=== PATIENT | male | born 1965 | race Caucasian/White ===

== ENCOUNTER 2019-09-09 12:08 | Emergency (ER) | payer OTHER ==
--- NOTE | 2019-09-09 12:26 | ER Document Report ---
ED Medical Screen (RME) - General Chief Complaint: Abdominal Pain Stated Complaint: ABDOMINAL PAIN Time Seen by Provider: 09/09/19 12:21 Notes: HPI: 54-year-old male with 6 weeks of intermittent right upper quadrant pain after eating and drinking. Reports of nausea no vomiting. No fever. Pain worse today but still intermittent in nature he is concerned about it being his gallbladder no history of abdominal surgeries I have greeted and performed a rapid initial assessment of this patient. A comprehensive ED assessment and evaluation of the patient, analysis of test results and completion of the medical decision making process will be conducted by additional ED providers PHYSICAL EXAMINATION: Mildly uncomfortable. Mild tenderness in the right upper quadrant on palpation - Related Data Allergies/Adverse Reactions: amoxicillin Allergy (Verified 09/09/19 12:13) clindamycin Allergy (Verified 09/09/19 12:13) enoxaparin [From Lovenox] Allergy (Verified 09/09/19 12:13) warfarin [From Coumadin] Allergy (Verified 09/09/19 12:13) Past Medical History - Social History Chew tobacco use (# tins/day): No Frequency of alcohol use: None Drug Abuse: None Physical Exam - Vital signs Vitals: Temp Pulse Resp BP Pulse Ox 97.8 F 76 18 148/83 H 97 09/09/19 12:12 09/09/19 12:12 09/09/19 12:12 09/09/19 12:12 09/09/19 12:12 Course - Vital Signs Vital signs: Temp Pulse Resp BP Pulse Ox 97.8 F 76 18 148/83 H 97 09/09/19 12:12 09/09/19 12:12 09/09/19 12:12 09/09/19 12:12 09/09/19 12:12
[2019-09-09 12:42] LABS: ABSOLUTE EOSINOPHILS # (AUTO) 0.1 10^3/uL (0.0-0.6); ABSOLUTE LYMPHOCYTES (AUTO) 1.7 10^3/uL (0.5-4.7); ABSOLUTE MONOCYTES (AUTO) 0.9 10^3/uL (0.1-1.4); ABSOLUTE NEUT (AUTO) 4.9 10^3/uL (1.7-8.2); BASOPHILS % (AUTO) 0.7 % (0-2); EOSINOPHILS % (AUTO) 1.6 % (0-6); HEMATOCRIT 47.6 % (37.9-51.0); HEMOGLOBIN 17.4 g/dL (13.5-17.0); LYMPHOCYTES % (AUTO) 22.5 % (13-45); MEAN CORPUSCULAR HEMOGLOBIN 32.8 pg (27.0-33.4); MEAN CORPUSCULAR HGB CONC 36.5 g/dL (32.0-36.0); MEAN CORPUSCULAR VOLUME 90 fl (80-97); MONOCYTES % (AUTO) 11.3 % (3-13); PLATELET COUNT 318 10^3/uL (150-450); RED CELL DISTRIBUTION WIDTH 13.5 % (11.5-14.0); SEGMENTED NEUTROPHILS % (AUTO) 63.9 % (42-78); TOTAL CELLS COUNTED % (AUTO) 100 %; WHITE BLOOD COUNT 7.6 10^3/uL (4.0-10.5)
[2019-09-09 13:05] LABS: ALBUMIN 4.9 g/dL (3.5-5.0); ALKALINE PHOSPHATASE 81 U/L (38-126); ANION GAP 9 (5-19); ASPARTATE AMINO TRANSFERASE 29 U/L (17-59); BILIRUBIN,DIRECT 0.1 mg/dL (0.0-0.4); BILIRUBIN,TOTAL 0.9 mg/dL (0.2-1.3); BLOOD UREA NITROGEN 16 mg/dL (7-20); CALCIUM 9.8 mg/dL (8.4-10.2); CARBON DIOXIDE 28 mmol/L (22-30); CHLORIDE 103 mmol/L (98-107); GLUCOSE 85 mg/dL (75-110); POTASSIUM 4.2 mmol/L (3.6-5.0); TOTAL PROTEIN 8.1 g/dL (6.3-8.2)
--- NOTE | 2019-09-09 13:21 | RADIOLOGY REPORT (SQ) ---
EXAM DESCRIPTION: U/S ABDOMEN LTD W/DOPPLER IMAGES COMPLETED DATE/TIME: 09/09/2019 12:59 pm REASON FOR STUDY: eval gallbladder COMPARISON: None. TECHNIQUE: Dynamic and static grayscale images acquired of the abdomen and recorded on PACS. Additio nal selected color Doppler and spectral images recorded. LIMITATIONS: None. FINDINGS: PANCREAS: Visualized portion of the pancreas are normal in appearance. LIVER: No masses. Echotexture normal. LIVER VASCULATURE: Normal directional flow of the main portal vein and hepatic veins. GALLBLADDER: No stones. Normal wall thickness. No pericholecystic fluid. ULTRASOUND-DETECTED CRUZ'S SIGN: Negative. INTRAHEPATIC DUCTS AND COMMON DUCT: CBD and intrahepatic ducts normal caliber. No filling defects. AORTA: No aneurysm. RIGHT KIDNEY: Normal size. Normal echogenicity. No solid or suspicious masses. No hydronephrosis. No calcifications. PERITONEAL AND RIGHT PLEURAL SPACE: No ascites or effusions. OTHER: No other significant findings. IMPRESSION: NORMAL RIGHT UPPER QUADRANT ULTRASOUND. TECHNICAL DOCUMENTATION: JOB ID: [id number] 2010 [employer]- All Rights Reserved Reading location - IP/workstation name: [email or web address]
--- NOTE | 2019-09-09 14:01 | ER Document Report ---
ED General - General Chief Complaint: Abdominal Pain Stated Complaint: ABDOMINAL PAIN Time Seen by Provider: 09/09/19 12:21 Primary Care Provider: SANTOS,PATY [Primary Care Provider] - Follow up as needed Mode of Arrival: Ambulatory Notes: HPI: 54-year-old male with 6 weeks of intermittent right upper quadrant pain after eating and drinking. Reports of nausea no vomiting. No fever. Pain w orse today but still intermittent in nature he is concerned about it being his gallbladder no history of abdominal surgeries 54-year-old male arrives with chief complaint of 1 to 3-month history of right upper quadrant pain which is painful on lifting moving and palpation of the area. 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 He also worked in the [employer] but had to retire because of his right hip problem. He has been doing a lot of yard work lately and he has a cornejo skin because of this. Patient denies any history of kidney disease or liver disease or gallbladder disease. His labs and ultrasound were normal today. TRAVEL OUTSIDE OF THE [place] IN LAST 30 DAYS: No - Related Data Allergies/Adverse Reactions: amoxicillin Allergy (Verified 09/09/19 12:13) clindamycin Allergy (Verified 09/09/19 12:13) enoxaparin [From Lovenox] Allergy (Verified 09/09/19 12:13) warfarin [From Coumadin] Allergy (Verified 09/09/19 12:13) Past Medical History - Social History Smoking Status: Former Smoker Chew tobacco use (# tins/day): No Frequency of alcohol use: None Drug Abuse: None Lives with: Family Family History: Reviewed & Not Pertinent Patient has suicidal ideation: No Patient has homicidal ideation: No Past Surgical History: Reports: Hx Orthopedic Surgery - spine sx, right hip replacement x2 Physical Exam - Vital signs Vitals: Temp Pulse Resp BP Pulse Ox 97.8 F 76 18 148/83 H 97 09/09/19 12:12 09/09/19 12:12 09/09/19 12:12 09/09/19 12:12 09/09/19 12:12 Interpretation: Normal - General General appearance: Alert, Anxious - HEENT Head: Normocephalic Eyes: Normal Conjunctiva: Normal Cornea: Normal Extraocular movements intact: Yes Eyelashes: Normal Pupils: PERRL Sinus: Normal Nasal: Normal Pharynx: Normal Neck: Normal - Respiratory Respiratory status: No respiratory distress Chest status: Nontender Breath sounds: Normal Chest palpation: Normal - Cardiovascular Rhythm: Regular Heart sounds: Normal auscultation Murmur: No Friction rub: No Ximena's crunch: No - Abdominal Inspection: Normal Distension: No distension Bowel sounds: Normal Tenderness: Nontender Organomegaly: No organomegaly - Back Back: Normal - Extremities General upper extremity: Normal inspection General lower extremity: Normal inspection - Neurological Neuro grossly intact: Yes Cognition: Normal Orientation: AAOx4 Rachele Coma Scale Eye Opening: Spontaneous Rachele Coma Scale Verbal: Oriented Speech: Normal Cranial nerves: Normal Cerebellar coordination: Normal Motor strength normal: LUE, RUE, LLE, RLE - Psychological Associated symptoms: Anxious - Skin Skin Temperature: Warm Skin Moisture: Dry Course - Vital Signs Vital signs: Temp Pulse Resp BP Pulse Ox 97.8 F 76 18 148/83 H 97 09/09/19 12:12 09/09/19 12:12 09/09/19 12:12 09/09/19 12:12 09/09/19 12:12 - Laboratory Result Diagrams: 09/09/19 12:30 09/09/19 12:30 Laboratory results interpreted by me: 09/09/19 12:30 Hgb 17.4 H MCHC 36.5 H - Diagnostic Test Radiology reviewed: Reports reviewed Radiology results interpreted by me: 09/09/19 16:46 As per radiology patient has no CT scan or ultrasound findings that explain the patient's right upper quadrant pain but also has 2.5 cm left lower quadrant possible diverticulitis. Critical Care Note - Critical Care Note Total time excluding time spent on procedures (mins): 90 Comments: I advised patient to follow-up with personal doctor and with surgeon of choice Discharge - Discharge Clinical Impression: Muscular abdominal pain in right upper quadrant, Diverticulitis Abdominal pain Qualifiers: Abdominal location: right upper quadrant Qualified Code(s): R10.11 - Right upper quadrant pain Condition: Good Disposition: HOME, SELF-CARE Additional Instructions: Follow-up with personal doctor and with surgeon of choice return to ER as needed take medicines as directed; avoid lifting bending or twisting until seen by PMD Prescriptions: Diclofenac Sodium 100 gm TP BID PRN #100 gel..gram. PRN Reason: Levofloxacin [Levaquin 500 mg Tablet] 500 mg PO DAILY #10 tablet [facility]errals: [facility] [Primary Care Provider] - Follow up as needed
--- NOTE | 2019-09-09 16:36 | RADIOLOGY REPORT (SQ) ---
EXAM DESCRIPTION: CT ABD/PELVIS WITH IV ONLY IMAGES COMPLETED DATE/TIME: 09/09/2019 4:22 pm REASON FOR STUDY: pain ruq COMPARISON: Right upper quadrant ultrasound 09/09/2019 TECHNIQUE: CT scan of the abdomen and pelvis performed using helical scanning technique with dynamic intravenous contrast injection. No oral contrast. Images reviewed with lung, soft tissue, and bone windows. Reconstructed coronal and sagittal MPR images reviewed. Delayed images for evaluation of the urinary system also acquired. All images stored on PACS. All CT scanners at this facility use dose modulation, iterative reconstruction, and/or weight based d osing when appropriate to reduce radiation dose to as low as reasonably achievable (ALARA). [facility]: Dose Right [facility]: CareDose [facility]: Dose Right [facility]: Teradose 4D [facility]: AgreeYa [employer] - Onvelop CONTRAST TYPE AND DOSE: contrast/concentration: Isovue 350.00 mg/ml; Total Contrast Delivered: 100.0 ml; Total Saline Delivered: 50.0 ml RENAL FUNCTION: Creatinine 1.0 RADIATION DOSE: CT Rad equipment meets quality standard of care and radiation dose reduction techniq ues were employed. CTDIvol: NaN - NaN mGy. DLP: 0 mGy-cm.. LIMITATIONS: None. FINDINGS: LOWER CHEST: No significant findings. No nodules or infiltrates. LIVER: Normal size. No masses. No dilated ducts. SPLEEN: Normal size. No focal lesions. PANCREAS: No masses. No significant calcifications. No adjacent inflammation or peripancreatic fluid collections. Pancreatic duct not dilated. GALLBLADDER: No identified stones by CT criteria. No inflammatory changes to suggest cholecystitis. ADRENAL GLANDS: No significant masses or asymmetry. RIGHT KIDNEY AND URETER: No solid masses. No significant calcifications. No hydronephrosis or hyd roureter. LEFT KIDNEY AND URETER: No solid masses. No significant calcifications. No hydronephrosis or hydr oureter. AORTA AND VESSELS: No aneurysm. No dissection. Renal arteries, SMA, celiac without stenosis. RETROPERITONEUM: No retroperitoneal adenopathy, hemorrhage or masses. BOWEL AND PERITONEAL CAVITY: No CT evidence of bowel obstruction or free intraperitoneal air or fluid . There are scattered colonic diverticuli present in the left lower quadrant pericolic fat adjacent to the distal descending colon, an ill-defined 2.5 x 2.5 cm area of increased attenuation in the fat is present adjacent to a colonic diverticulum. There is no bowel wall thickening. This could represent acute diverticulitis or residua of old prior diverticulitis, finding is best shown on coronal image 33 and axial images 74-77. APPENDIX: Normal. PELVIS: No mass. No free fluid. Normal bladder. ABDOMINAL WALL: No masses. No hernias. BONES: No significant or acute findings. OTHER: No other significant finding. IMPRESSION: No CT findings to explain history of right upper quadrant pain 2.5 cm area of increased density in the pericolic fat left lower quadrant. This could represent acut e or chronic change from diverticulitis TECHNICAL DOCUMENTATION: JOB ID: [id number] Quality ID # [id number]: Final reports with documentation of one or more dose reduction techniques (e.g., Au tomated exposure control, adjustment of the mA and/or kV according to patient size, use of iterative reconstruction technique) 2010 [email or web address]- All Rights Reserved Reading location - IP/workstation name: [email or web address]
[2019-09-09 17:35] VITALS: BP 126/83
--- NOTE | 2019-09-10 08:08 | EKG REPORT ---
SEVERITY:- NORMAL ECG - SINUS RHYTHM : Confirmed by: Christianne Connell MD 10-Sep-2019 08:07:16
== END 2019-09-09 17:35 | disposition home or self-care (01) ==
LOC: ER 12:08
DX: K57.92 Diverticulitis of intestine, part unspecified, without perforation or abscess without bleeding (principal); M79.18 Myalgia, other site; R11.0 Nausea; Z87.891 Personal history of nicotine dependence; Z88.0 Allergy status to penicillin; Z88.1 Allergy status to other antibiotic agents; Z88.8 Allergy status to other drugs, medicaments and biological substances
CPT/HCPCS: 36415; 74177; 76705; 80053; 83690; 85025; 93005; 93010; 93976; 99291; 99292